=== PATIENT | female | born 1965 | race Caucasian/White ===

== ENCOUNTER → 2016-11-10 | Outpatient (CLI) | payer BC ==
[~2016-11-10] MED LIST: EMOLOIN TOP; IBUP-1050 PO; MULT-506 PO; PANT40TA PO; SULF800T23 PO
--- NOTE | 2016-11-10 11:18 | DIAGNOSTIC IMAGING REPORT ---
MRI OF THE CERVICAL SPINE WITHOUT CONTRAST CLINICAL HISTORY: Cervical disc herniation and. Persistent neck pain. COMPARISON: MRI of the cervical spine May 17, 2016. TECHNIQUE: Utilizing a 1.5 Shanell magnet and dedicated coil, multiplanar, multiecho imaging of the cervical spine was performed without IV contrast. FINDINGS: Alignment of the cervical spine is anatomic. Vertebral body heights are maintained. There is no suspicious marrow replacement. There is no intracanalicular mass or fluid collection. Visualized portions of the posterior fossa are unremarkable. Cervical cord signal and caliber are normal. C2-C3: The central canal and the neural foramen are patent. C3-C4: There is mild disc bulge with a tiny central disc protrusion. There is minimal narrowing of the central canal. This is unchanged since prior exam of May 17, 2016. The neural foramen are patent. C4-C5: The central canal and neural foramen are patent. C5-C6: Disc bulge is noted. There is minimal narrowing of the central canal. There is mild narrowing of the left neural foramen and moderate narrowing of the right neural foramen predominantly due to uncovertebral hypertrophy. This is unchanged. C6-C7: Disc bulge is noted. There is minimal narrowing of the central canal. Severe left neural foraminal stenosis is noted. C7-T1: The central canal and the neural foramen are patent. IMPRESSION: 1. Mild multilevel disc bulges with minimal multilevel central canal stenosis. No significant central canal stenosis. Normal cervical cord and caliber. 2. 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 3. No significant change since MRI of May 17, 2016. Electronically signed by: Nico Adorno M.D. 11/10/2016 11:16 AM Dictated Date/Time: 11/10/2016 11:08 AM
== END | disposition home or self-care (01) ==
LOC: C.MRIBC 09:49
PROVIDERS: ATTEND Orthopaedic Surgery Orthopaedic Surgery of the Spine
DX: M50.20 Other cervical disc displacement, unspecified cervical region (principal)

== ENCOUNTER → 2017-05-31 | Outpatient (CLI) | payer BC ==
[2017-05-31 13:26] LABS: THYROID STIMULATING HORMONE 1.55 uIu/ml (0.300-4.500)
== END | disposition home or self-care (01) ==
LOC: C.LAB1850 10:11
PROVIDERS: ATTEND Internal Medicine
DX: R94.6 Abnormal results of thyroid function studies (principal)